=== PATIENT | male | born 1960 | race Two or more races ===

== ENCOUNTER 2025-09-03 11:34 | Outpatient (CLI) | payer OTHER | END 2025-09-03 11:36 | disposition home or self-care (01) | LOC: NUCLEAR 11:34 | PROVIDERS: ATTEND Internal Medicine | DX: I65.22 Occlusion and stenosis of left carotid artery (principal) ==

== ENCOUNTER 2025-09-23 08:36 | Outpatient (CLI) | payer OTHER | END 2025-09-23 08:38 | disposition home or self-care (01) | LOC: MRI 08:36 | PROVIDERS: ATTEND Internal Medicine | DX: M54.17 Radiculopathy, lumbosacral region (principal) | CPT/HCPCS: 72148 ==